=== PATIENT | female | born 1970 | race Caucasian/White ===

== ENCOUNTER 2018-01-07 21:43 | Inpatient (IN) | payer OTHER, MEDICAID, SELFPAY ==
--- NOTE | 2018-01-07 21:54 | DI.RAD.S_ITS ---
PROCEDURE: XR CHEST 2V INDICATIONS: cough, fever, SOB TECHNIQUE: 2 views of the chest were acquired. COMPARISON: None. FINDINGS: Surgical changes and devices: None. Lungs and pleura: No pleural effusions or pneumothorax. Lungs are clear. Mediastinum: Mediastinal contours are normal. Heart size is normal. Bones and chest wall: No suspicious bony abnormalities. Soft tissues appear unremarkable. IMPRESSION: No acute process. Dictated by: Ana Conner M.D. on 01/08/2018 at 9:39 Approved by: Ana Conner M.D. on 01/08/2018 at 9:39
[2018-01-07 21:56] VITALS: BP 129/74; PULSE 124; RESP 20; TEMP 37.5; O2SAT 97; BMI 35.6
[2018-01-07 22:21] LABS: Influenza A and B by PCR Rapid Negative (Negative)
[2018-01-07] MEDS: SODIUM CHLORIDE 0.9% 3,000 ML 1000 ML IV (23:05)
[2018-01-07 23:13] VITALS: BP 118/68; PULSE 112; RESP 30; O2SAT 98
[2018-01-07 23:18] LABS: Add Manual Diff / Slide Review NO; Eosinophils Percent Auto 0.9 % (2-4); Lymphocytes Percent Auto 6.1 % (25-40); Mean Corpuscular HGB Conc 33.4 % (30-36); Mean Corpuscular Hemoglobin 30.4 PG (26-34); Mean Corpuscular Volume 91.1 fL (80-100); Monocytes Percent Auto 1.6 % (3-14); Neutrophils Absolute Auto 5300 /uL (3000-5900); Neutrophils Percent Auto 91.4 % (50-75); Platelet Count 239 X10^3/uL (150-400); Red Blood Cell Count 4.61 X10^6/uL (4.0-5.2); Red Cell Distribution Width 14.5 % (11.6-14.8); White Blood Cell Count 5.8 X10^3/uL (4.5-11.0)
--- NOTE | 2018-01-07 23:22 | ED.SOB ---
HPI - SOB/Dyspnea General Chief Complaint: Shortness of Breath/Dyspnea Stated Complaint: SOB TEMPTURE HEADACHE Time Seen by Provider: 01/07/18 21:52 Source: patient and family Mode of arrival: ambulatory Limitations: no limitations History of Present Illness 47-year-old female, former smoker and current IV drug abuser presents with chief complaint of fever, shaking chills, fatigue, occasional chest pain for the past few days. She last (unsuccessfully) attempted to inject methamphetamines into her left hand about 3 weeks ago. In the aftermath she developed some redness, pain and swelling in her left hand and last Tuesday sought treatment including antibiotics in the form of Bactrim. Last evening the patient was beginning to feel ill including fever, shaking chills and some shortness of breath. She was seen and evaluated at an outside facility and had a thorough evaluation including chest x-ray and blood work, all of which was evaluated here. She had elevated inflammatory markers but a normal chest x-ray. She presents to us continued to feel unwell Related Data Home Medications Medication Instructions Recorded Confirmed Advil PM 1 caplet PO BEDTIME PRN 01/08/18 01/08/18 aspirin 325 mg PO PRN 01/08/18 cephalexin 500 mg PO Q6HR 01/08/18 01/08/18 sulfamethoxazole-trimethoprim 800 mg PO BID 01/08/18 01/08/18 Allergies Allergy/AdvReac Type Severity Reaction Status Date / Time No Known Drug Allergies Allergy Verified 01/07/18 21:56 Review of Systems Review of Systems All systems reviewed & are unremarkable except as noted in HPI and below Constitutional Reports chills, Reports fever(s), Denies lethargy and Reports weakness Eyes Denies change in vision, Denies eye discharge, Denies irritation and Denies loss of vision ENT Ears, Nose, Mouth, and Throat: Denies change in voice, Denies neck pain and Denies sore throat Cardiovascular Denies chest pain, Denies irregular heart rhythm, Denies lightheadedness, Denies palpitations, Reports dyspnea, Denies dyspnea on exertion and Denies orthopnea Respiratory Denies cough, Reports dyspnea, Denies dyspnea on exertion and Denies wheezing Gastrointestinal Gastrointestinal: Denies abdominal pain, Denies change in bowel habits, Denies diarrhea, Denies nausea and Denies vomiting Genitourinary Denies hematuria, Denies flank pain, Denies urinary incontinence and Denies urinary urgency Musculoskeletal Denies neck pain Integumentary/Breasts Denies pruritus, Reports erythema, Denies rash and Denies wounds Neurologic Denies confusion, Denies loss of vision and Reports weakness Psychiatric Denies anxiety, Denies confusion, Denies depression, Denies homicidal ideation and Denies suicidal ideation Endocrine Denies palpitations Hematologic/Lymphatic Denies easy bruising Allergic/Immunologic Denies wheezing PFSH Medical History Drug abuse and dependence (Acute) Surgical History H/O adenoidectomy (Acute) H/O tubal ligation (Acute) Hx of tonsillectomy (Acute) Social History household members: significant other Smoking Status: Current every day smoker Exam Initial Vital Signs Initial Vital Signs: Vital Signs Temperature 99.5 F 01/07/18 21:56 Pulse Rate 124 H 01/07/18 21:56 Respiratory Rate 20 01/07/18 21:56 Blood Pressure 129/74 01/07/18 21:56 Pulse Oximetry 97 01/07/18 21:56 Const General: cooperative, well developed, acute distress, disheveled and ill appearing Nutritional Appearance: well nourished Orientation: alert, awake, oriented x3 and not confused HENMT Head: normocephalic and atraumatic Ears: external ears normal and TM's normal bilaterally Nose: external nose normal and No nasal discharge Face and sinus: sinuses nontender, face symmetric, no sinus tenderness and No dry mucous membranes Mouth: oral mucosae normal and moist mucous membranes Teeth and gingiva: dentition normal Throat: tonsils normal and uvula midline Eyes General: appearance normal, both eyes and all related structures Eyelids: eyelids normal Conjunctivae: conjunctivae normal Sclera: sclerae normal Pupils: PERRL EOM: EOM intact bilaterally Neck Neck: normal visual inspection, trachea midline, No lymphadenopathy, No midline deformity and No JVD Lymphatic: No lymphedema Chest Chest: normal inspection of the chest Resp Effort & Inspection: normal respiratory effort, able to speak in complete sentences, no respiratory distress and no use of accessory muscles Auscultation: clear to auscultation bilaterally, no rales, no rhonchi and no wheezes Cardio Rate: tachycardic Rhythm: regular rhythm Heart Sounds: no click, no gallops, no murmurs and no rubs Pulses: normal peripheral pulses GI Inspection: non-distended Palpation: soft, no hepatosplenomegaly, No guarding, No pulsatile mass and No tender Auscultation: normal bowel sounds Back/Spine/Pelvis Back: No CVA tenderness Cervical Spine: cervical ROM normal and No pain with cervical ROM Thoracic/Lumbar Spine: thoracic and lumbar spine normal to inspection Skin General: no rashes or lesions noted, No jaundice and No petechiae Other: mild erythema to L hand, reported to be greatly improved over prior by patient Course Orders Ordered: ED Orders 01/07/18 21:54 XR chest 2V Stat 01/07/18 21:55 Influenza A and B by PCR Rapid Stat 01/07/18 23:00 Complete Blood Count AUTO DIFF Stat Comprehensive Metabolic Panel Stat Lactate (Lactic Acid) Stat Procalcitonin Stat 01/07/18 23:30 Blood Culture Stat 01/08/18 01:38 Consult to Chucking Machine Operator Routine Acetaminophen (Tylenol) 650 mg PO Q6HR PRN PRN Reason: As Needed for Fever/Mild Pain Sodium Chloride (Normal Saline 0.9%) 1,000 mls @ 125 mls/hr IV CONT HENRY Discontinued Medications Sodium Chloride (Normal Saline 0.9%) 3,000 mls @ 1,000 mls/hr 30 ml/kg infuse over 3 hr (3000 ml) IV CONT HENRY Last Infusion: 01/08/18 01:10 Dose: 999 mls/hr Infusion: 01/08/18 01:07 Dose: 0 mls/hr Admin: 01/07/18 23:05 Dose: 1,000 mls/hr Gentamicin Sulfate 200 mg/ (Sodium Chloride) 105 mls @ 105 mls/hr IV NOW ONE Stop: 01/07/18 23:35 Last Infusion: 01/08/18 01:08 Dose: 0 mls/hr Admin: 01/08/18 00:09 Dose: 105 mls/hr Ceftriaxone Sodium/Dextrose (Rocephin) 2 gm in 50 mls @ 100 mls/hr IV NOW ONE Stop: 01/08/18 00:03 Last Infusion: 01/08/18 00:09 Dose: 0 mls/hr Admin: 01/07/18 23:41 Dose: 100 mls/hr Lorazepam (Ativan) 0.5 mg PO NOW ONE Stop: 01/07/18 23:49 Last Admin: 01/07/18 23:52 Dose: 0.5 mg Consultations Consultation #1: Dr. Rodriguez happy to accept patient Vital Signs - 8 hr 01/07/18 21:56 01/07/18 23:13 01/08/18 00:55 Temperature 99.5 F 100.8 F H Pulse Rate 124 H 112 H 115 H Respiratory Rate 20 30 H 18 Blood Pressure 129/74 110/69 Blood Pressure [Left Arm] 118/68 Pulse Oximetry 97 98 99 MDM - SOB/Dyspnea Medical Records Attestation: I reviewed the patient's medical records. Lab Data Result diagrams: 01/07/18 23:00 01/07/18 23:00 Lab Results 01/07/18 01/07/18 01/07/18 Range/Units 21:55 23:00 23:00 WBC 5.8 (4.5-11.0) X10^3/uL RBC 4.61 (4.0-5.2) X10^6/uL Hgb 14.0 (12.0-16.0) g/dL Hct 42.0 (36-46) % MCV 91.1 (80-100) fL MCH 30.4 (26-34) PG MCHC 33.4 (30-36) % RDW 14.5 (11.6-14.8) % Plt Count 239 (150-400) X10^3/uL Neut % (Auto) 91.4 H (50-75) % Lymph % (Auto) 6.1 L (25-40) % [place] % (Auto) 1.6 L (3-14) % Eos % (Auto) 0.9 L (2-4) % Baso % (Auto) 0.0 (0-2) % Neut # (Auto) 5300 (1510-4092) /uL Sodium (137-145) mmol/L Potassium (3.4-5.1) mmol/L Chloride (98-107) mmol/L Carbon Dioxide (22-32) mmol/L BUN (7-17) mg/dL Creatinine (0.52-1.04) mg/dL Estimated GFR (>60) mL/min BUN/Creatinine Ratio (6-22) Glucose (70-100) mg/dL Lactate (0.7-2.1) mmol/L Calcium (8.4-10.2) mg/dL Total Bilirubin (0.2-1.3) mg/dL AST (14-36) IU/L ALT (9-52) IU/L Alkaline Phosphatase (38-126) U/L Total Protein (6.3-8.2) g/dL Albumin (3.5-5.0) g/dL Globulin (1.7-4.1) g/dL Albumin/Globulin Ratio (1.0-2.8) Procalcitonin 0.22 (<0.5) ng/mL Influenza A & B (PCR) Negative (Negative) 01/07/18 01/07/18 Range/Units 23:00 23:00 WBC (4.5-11.0) X10^3/uL RBC (4.0-5.2) X10^6/uL Hgb (12.0-16.0) g/dL Hct (36-46) % MCV (80-100) fL MCH (26-34) PG MCHC (30-36) % RDW (11.6-14.8) % Plt Count (150-400) X10^3/uL Neut % (Auto) (50-75) % Lymph % (Auto) (25-40) % [place] % (Auto) (3-14) % Eos % (Auto) (2-4) % Baso % (Auto) (0-2) % Neut # (Auto) (4626-0155) /uL Sodium 143 (137-145) mmol/L Potassium 4.2 (3.4-5.1) mmol/L Chloride 104 (98-107) mmol/L Carbon Dioxide 25 (22-32) mmol/L BUN 17 (7-17) mg/dL Creatinine 1.30 H (0.52-1.04) mg/dL Estimated GFR 44.1 L (>60) mL/min BUN/Creatinine Ratio 13.1 (6-22) Glucose 99 (70-100) mg/dL Lactate 0.8 (0.7-2.1) mmol/L Calcium 9.1 (8.4-10.2) mg/dL Total Bilirubin 0.4 (0.2-1.3) mg/dL AST 25 (14-36) IU/L ALT 30 (9-52) IU/L Alkaline Phosphatase 95 (38-126) U/L Total Protein 8.2 (6.3-8.2) g/dL Albumin 4.5 (3.5-5.0) g/dL Globulin 3.7 (1.7-4.1) g/dL Albumin/Globulin Ratio 1.2 (1.0-2.8) Procalcitonin (<0.5) ng/mL Influenza A & B (PCR) (Negative) Urine Dip Bedside Urine Glucose Negative Bedside Urine Bilirubin - Negative Bedside Urine Ketone - Negative Urine Specific [place] 1.020 Bedside Urine Occult Blood - Negative Bedside Urine pH 7.0 Bedside Urine Protein - Negative Bedside Urine Urobilinogen - Negative Bedside Urine Nitrite - Negative Bedside Urine Leukocytes - Negative Esterase ECG Data Attestation: I personally reviewed and interpreted this ECG as follows: Prior ECG tracings: not available for review Interpretation: EKG is normal sinus rhythm rate [ 124] and free of any signs of ischemia or ectopy. No ST segmental elevation or depression. No T wave inversions MDM Narrative Medical decision making narrative: 47-year-old female, IV drug abuser presents with fever, shaking chills, shortness of breath and occasional chest pain. Her left hand, cellulitis, is greatly improved per patient. She had a chest x-ray last night which was normal. Given her history of IV drug abuse she will require admission IV antibiotics until cultures clear, with likely echocardiogram for the possibility of endocarditis Discharge Plan Departure Patient Disposition: Admitted As Inpatient Clinical Impression: Bacteremia Discharge Date/Time: 01/08/18 01:00 Interventions: ED Discharge Assessment Last Done: 01/08/18 01:10 Admit Date/Time: 01/08/18 00:14 Admit Provider: Melly Rodriguez
[2018-01-07 23:27] LABS: Alanine Aminotransferase 30 IU/L (9-52); Albumin 4.5 g/dL (3.5-5.0); Albumin Globulin Ratio 1.2 (1.0-2.8); Alkaline Phosphatase 95 U/L (38-126); Aspartate Aminotransferase 25 IU/L (14-36); BUN Creatinine Ratio 13.1 (6-22); Bilirubin Total 0.4 mg/dL (0.2-1.3); Blood Urea Nitrogen 17 mg/dL (7-17); Calcium 9.1 mg/dL (8.4-10.2); Carbon Dioxide 25 mmol/L (22-32); Chloride 104 mmol/L (98-107); Estimated Glomerular Filt Rate 44.1 mL/min (>60); Globulin 3.7 g/dL (1.7-4.1); Glucose 99 mg/dL (70-100); HEMOLYSIS < 15 (0-50); Lactate (Lactic Acid) 0.8 mmol/L (0.7-2.1); Potassium 4.2 mmol/L (3.4-5.1); Sodium 143 mmol/L (137-145); Total Protein 8.2 g/dL (6.3-8.2)
[2018-01-07 23:41] LABS: Procalcitonin 0.22 ng/mL (<0.5)
[2018-01-07] MEDS: CEFTRIAXONE 2 GM/50 ML FROZ.PIGGY IV (23:41)
[2018-01-07] MEDS: LORazepam 0.5 MG TABLET PO (23:52)
[2018-01-08] VITALS (9 sets, daily range): BP systolic 103–127; BP diastolic 55–69; PULSE 76–115; RESP 16–24; TEMP 36.7–38.2; O2SAT 97–100; BMI 35.6
[2018-01-08] MEDS: GENTAMICIN 200 MG in SODIUM CHLORIDE 0.9% 100 ML 105 ML IV (00:09)
--- NOTE | 2018-01-08 00:13 | PC.NURSE ---
#2 of 3 liters hung. Lung mendez clear
--- NOTE | 2018-01-08 01:09 | PC.NURSE ---
gentamyacin and NS to continue on acute care floor.
[2018-01-08] MEDS: ACETAMINOPHEN 325 MG TABLET 650 MG PO ×3 (02:14→19:24)
[2018-01-08] MEDS: SODIUM CHLORIDE 0.9% 1,000 ML 125 ML IV ×3 (03:06→19:50)
--- NOTE | 2018-01-08 05:37 | PC.ADMIT ---
[address] Admission Note: At appr 0100 pt arrived to room 227 from the ER via a wheelchair, pt able to transfer herself indep to the bed. Pt is A/O x3 and shares openinly that she had been using IV drugs up until appr 3 weeks ago, pt stopped in an effort to get her life back in order and get her kids back with her. Pt also shares that she is trying to get herself healthy, she is concerned that her drug use may have caused damage to her heart, she has had chest pain and shortness of breath prior to admission and in the ER, denies both at this time. Pt receiving some outpt dependency and mental health counseling in [place] where she lives with her significant other and she is in town visiting family. Pt is calm and cooperative. Temp of 100.8 with a headache, medicated with Tylenol. Finished IV Bolus that was started in the ER and IVF infusing at ordered rate. Light erythema and swelling to left hand/thumb, denies pain to site. Tele in place. Bed alarm on for safety. Pt oriented to room and call light and questions answered. The patient,ADA PATTERSON,47 y/o, was given written information regarding hospital policies, unit procedures and contact persons. Patient's smoking status: Current every day smoker. Vital Signs - 8 hr 01/07/18 21:56 01/07/18 23:13 01/08/18 00:55 Temperature 99.5 F 100.8 F H Pulse Rate 124 H 112 H 115 H Respiratory Rate 20 30 H 18 Blood Pressure 129/74 110/69 Blood Pressure [Left Arm] 118/68 Pulse Oximetry 97 98 99 01/08/18 02:14 01/08/18 03:00 01/08/18 04:53 Temperature 100.8 F H 98.3 F 98.2 F Pulse Rate 99 H Respiratory Rate 20 Blood Pressure 103/55 L Blood Pressure [Left Arm] Pulse Oximetry 97
--- NOTE | 2018-01-08 13:39 | PM.HP.1 ---
History of Present Illness Date Patient Seen: 01/08/18 Chief complaint: SOB TEMPTURE HEADACHE Narrative: This is a 47-year-old female with a long history of methamphetamine abuse who presents with constitutional symptoms suggesting either endocarditis/bacteremia or some other viral condition. She was just seen at the [facility] emergency department 1 day ago for an infection of the left thumb that was caused by an injection of methamphetamine.. She was started on Keflex and Bactrim. That swelling has gone down but the systemic symptoms of ?crummy [place]?, fever, chills, fast heart beat and chest heaviness developed subsequently. She lives in [facility] and is undergoing methamphetamine outpatient treatment at the [facility] in an effort to get custody of her children back. She is a former dental ex assistant/program director. Brad, her significant other is also in treatment and is with her in the room. Their children are 10 and 15. One of them lives with a grandparent and the other 1 lives in state housing. At the end of the visit she covers her mouth partly and whispers to me that her partner has psychosis. His explanations for how they use drugs are quite circuitous and confusing. Patient History Medical History delivery delivered (Acute) Drug abuse and dependence (Acute) Methamphetamine abuse (Acute) Nicotine addiction (Acute) Surgical History H/O dilation and curettage (Acute) H/O tubal ligation (Chronic) H/O adenoidectomy (Inactive) Hx of tonsillectomy (Inactive) Family & Social History Family History: Reviewed 01/08/18 by Melly Rodriguez MD Social History: household members significant other Prior Living Arrangements Apartment/Condo Safety & Behavioral: Feels Safe in Current Yes Environment Been Physically Hurt or No Threatened By a Person Suicidal Ideation Description None Suicide Plan Description No Plan Tobacco & Substance use: Tobacco type cigarettes Smoking Status Current every day smoker alcohol intake frequency 0-2 drinks per day Substance Use Type former substance user,methamphetamine Meds Home Medications Medication Instructions Recorded Confirmed Type Advil PM 1 caplet PO BEDTIME PRN 01/08/18 01/08/18 History aspirin 325 mg PO Q4H PRN 01/08/18 01/08/18 History cephalexin 500 mg PO Q6HR 01/08/18 01/08/18 History sulfamethoxazole-trimethoprim 800 mg PO BID 01/08/18 01/08/18 History Allergies Allergy/AdvReac Type Severity Reaction Status Date / Time No Known Drug Allergies Allergy Verified 01/07/18 21:56 Review of Systems Review of Systems Positive for chills and fevers along with left hand infection. Negative for chest pain, nausea, vomiting, coughing, abdominal pain, diarrhea, dysuria, hematuria, rash, joint pain other than the left hand, seizures, headaches, trouble talking or walking. Exam Vital Signs (past 8 hours): - 01/08/18 07:55 Temperature 98.8 F Pulse Rate 90 Respiratory Rate 20 Blood Pressure 124/69 Pulse Oximetry 99 Oxygen Delivery Method Room Air Narrative Exam Narrative: Alert and oriented x3. No apparent distress. Pupils are equally round and reactive to light and accommodation. Sclerae are pink and nonicteric. Extraocular muscles are intact. Throat looks normal No lymph nodes are felt head, neck, supraclavicular area. There is no thyromegaly. JVD is less than 6 cm. No carotid bruits are heard. Heart is regular rate and rhythm without murmur. Lungs clear to auscultation bilaterally. Abdomen is soft, bowel sounds positive, nontender, no organomegaly. Extremities have no ankle edema. She does have a small dorsal left thumb swelling over the 1st MCP joint. It is a firm lump and is not tender. There is no redness or fluctuance. Neuro exam. Reflexes are normal. Cranial nerves 2-12 tested intact. Motor function is 5/5 throughout. Hand function is normal throughout. DTRs are normal Skin has no rash or needle chua that I can readily see. Objective Labs Result Diagrams: 01/07/18 23:00 01/07/18 23:00 Labs: Laboratory Results - last 24 hr 01/07/18 01/07/18 01/07/18 21:55 23:00 23:00 WBC 5.8 RBC 4.61 Hgb 14.0 Hct 42.0 MCV 91.1 MCH 30.4 MCHC 33.4 RDW 14.5 Plt Count 239 Neut % (Auto) 91.4 H Lymph % (Auto) 6.1 L [place] % (Auto) 1.6 L Eos % (Auto) 0.9 L Baso % (Auto) 0.0 Neut # (Auto) 5300 Sodium Potassium Chloride Carbon Dioxide BUN Creatinine Estimated GFR BUN/Creatinine Ratio Glucose Lactate Calcium Total Bilirubin AST ALT Alkaline Phosphatase Total Protein Albumin Globulin Albumin/Globulin Ratio Procalcitonin 0.22 Influenza A & B (PCR) Negative 01/07/18 01/07/18 23:00 23:00 WBC RBC Hgb Hct MCV MCH MCHC RDW Plt Count Neut % (Auto) Lymph % (Auto) [place] % (Auto) Eos % (Auto) Baso % (Auto) Neut # (Auto) Sodium 143 Potassium 4.2 Chloride 104 Carbon Dioxide 25 BUN 17 Creatinine 1.30 H Estimated GFR 44.1 L BUN/Creatinine Ratio 13.1 Glucose 99 Lactate 0.8 Calcium 9.1 Total Bilirubin 0.4 AST 25 ALT 30 Alkaline Phosphatase 95 Total Protein 8.2 Albumin 4.5 Globulin 3.7 Albumin/Globulin Ratio 1.2 Procalcitonin Influenza A & B (PCR) Assessment & Plan (1) H/O adenoidectomy: Current visit: Yes Status: Inactive (2) Hx of tonsillectomy: Current visit: Yes Status: Inactive (3) H/O tubal ligation: Current visit: Yes Status: Chronic (4) Drug abuse and dependence: Problem details: She is actively seeking treatment in the [facility] for her methamphetamine use in order to regain custody of her children. She denies any prior history of heroin. Current visit: Yes Status: Acute (5) Methamphetamine abuse: Problem details: She has used methamphetamines for many years, along with her significant other. They apparently usually smoke it but on this recent episode she was trying to inject. Current visit: Yes Status: Acute (6) Bacteremia: Problem details: Her symptoms are very consistent with a bacteremic process. Blood cultures are pending. An echocardiogram will be done. She could quite conceivably have endocarditis based on her symptoms and recent history. She will be covered with vancomycin and Rocephin to cover the most usual skin infections of staph and strep. Current visit: Yes Status: Acute Quality VTE Deep Vein Thrombosis/Pulmonary Embolism Present on Admission: No
--- NOTE | 2018-01-08 13:40 | DI.ECHO.S_ITS ---
[facility] +---------+ Hospital +---------+ : : [address] : : : : [id number] : : : : Phone: [phone] Echocardiogram Report + + :Name: ADA PATTERSON Study Date: 01/09/2018 Height: 66 in : :[facility] Exam Location: IS Weight: 220 lb : : Gender: Female BSA: 2.1 m2 : :: 1970 Age: 47 yrs BP: 106/71 mmHg: :Reason For Study: ENDOCARDITIS : :Ordering Physician: Prince : :Hospitalist Performed By: Ewelina Kang : :Referring: PETER ZEPEDA E : + + Interpretation Summary The ejection fraction is estimated to be 55-60%. There is no significant valvular heart disease. Procedure: A two-dimensional transthoracic echocardiogram with color flow and Doppler was performed. The study quality was technically adequate. There is no prior echocardiogram noted for this patient. The patient was in normal sinus rhythm during the exam. Left Ventricle: The left ventricle is normal in size, wall thickness, and systolic function without any focal wall motion abnormalities. The ejection fraction is estimated to be 55-60%. Diastolic parameters suggest a relaxation abnormality of the left ventricle, consistent with probable normal filling pressures. Right Ventricle: The right ventricle is normal in size and function. Atria: The left atrial size is normal. Right atrial size is normal. There is no Doppler evidence for an interatrial shunt. Mitral Valve: The mitral valve is normal. There is no obvious vegetation seen on the mitral valve. There is trace mitral regurgitation. Aortic Valve: The aortic valve is normal in structure and function. There is no aortic valvular vegetation. No aortic regurgitation is present. Tricuspid Valve: The tricuspid valve is normal. There is no obvious tricuspid valve vegetation. There is a trace or physiologic amount of tricuspid regurgitation. Pulmonary artery pressures cannot be estimated because of the lack of a measurable TR jet velocity. Pulmonic Valve: The pulmonic valve leaflets are thin and pliable; valve motion is normal. There is no obvious vegetation on the pulmonic valve. There is a trace or physiologic amount of pulmonic regurgitation. Great Vessels: The aortic root is normal size. The ascending aorta is normal in size. The aortic arch is normal in size. The pulmonary is not well visualized. The IVC is dilated (diameter is greater than 2.1 cm) yet it collapses greater than 50% with a sniff. This suggests a right atrial pressure of 8 mm Hg. Pericardium/ Pleura There is no pericardial effusion. There is no pleural effusion. MMode/2D Measurements & Calculations LVIDd: 4.6 cm LVOT diam: 2.0 cm LVIDs: 3.4 cm Ao root diam: 2.9 cm FS: 26.1 % asc Aorta Diam: 2.7 cm EPSS: 0.52 cm Ao Arch Diam (Prox Trans): 2.3 cm IVSd: 0.86 cm LVPWd: 0.87 cm LV cardona. diameter/BSA (cm/m^2): 2.2 LV sys. diameter/BSA (cm/m^2): 1.6 LA A2 area: 17.8 cm2 RA long axis: 4.7 cm LA A4 area: 20.6 cm2 RA area: 14.9 cm2 LA length (vol): 5.0 cm RA vol: 40.4 ml LA vol: 61.9 ml RA : 19.4 ml/m2 LA vol index: 29.7 ml/m2 IVC diam: 2.4 cm RVD1 (basal): 3.8 cm TAPSE: 2.5 cm Doppler Measurements & Calculations Ao V2 max: 114.3 cm/sec LVOT Max Bert: 79.0 cm/sec Ao V2 mean: 81.1 cm/sec LV V1 max P.5 mmHg Ao max P.2 mmHg LV V1 VTI: 13.2 cm Ao mean P.9 mmHg LUI(I,D): 1.9 cm2 Ao V2 VTI: 22.0 cm LUI(V,D): 2.2 cm2 sev ratio: 0.60 LUI indexed to BSA (cm^2/m^2): 0.92 MV E max bert: 77.1 cm/sec PA V2 max: 71.5 cm/sec MV A max bert: 56.8 cm/sec PA V2 mean: 49.9 cm/sec MV E/A: 1.4 PA mean P.1 mmHg Med Peak E' Bert: 10.5 cm/sec PA pr(Accel): 44.1 mmHg E/E' med: 7.3 Lat Peak E' Bert: 9.6 cm/sec E/E' lat: 8.1 E/e' average: 7.7 MV dec time: 0.20 sec Reading Physician:01:12 PM
--- NOTE | 2018-01-08 14:31 | PC.NURSE ---
1430 Pt cont to rest in bed, IVF infusing. IV antibx to start this PM per APR. Urine specimen sent at 1340 today. Pt med with Tylenol x 1 this AM for H/A. Left thumb w/o redness or swelling.
[2018-01-08 14:44] LABS: Erythrocyte Sedimentation Rate 31 MM/HR (0-20)
[2018-01-08 15:03] LABS: Urine Amphetamines Negative (Negative); Urine Barbiturates Negative (Negative); Urine Benzodiazepines Negative (Negative); Urine Cocaine Negative (Negative); Urine MDMA Negative (Negative); Urine Methadone Negative (Negative); Urine Methamphetamines Negative (Negative); Urine Morphine/Opi cutoff 2000 Negative (Negative); Urine Oxycodone Negative (Negative); Urine Phencyclidine Negative (Negative); Urine Tetrahydrocannabinol Negative (Negative); Urine Tricyclic Antidepressant Negative (Negative)
--- NOTE | 2018-01-08 15:58 | PC.NURSE ---
1600-Pt sitting at woindow bench reading own book, back to bed to rest and watch TV. A/O x3, 99%RA, LS clear, denies SOB. VSS, BT+, denies nausea. URA NS @125 infusing per MAR.. ABO @ 2230. Telemetry in place with NSR. Lt hand/superior thumb, slight pink w/o swelling, cool to touch, w/o pain. SBA to BRP to void clear yellow urine. Provided cran tracie, call light in reach, uses appropriately.
[2018-01-08] MEDS: diphenhydrAMINE 25 MG TABLET PO (19:24)
[2018-01-08] MEDS: CEFTRIAXONE 1 GM/50 ML FROZ.PIGGY IV (22:39)
[2018-01-09] MEDS: SODIUM CHLORIDE 0.9% 1,000 ML 125 ML IV ×2 (04:23→13:54)
[2018-01-09 04:32] VITALS: BP 100/60; PULSE 74; RESP 17; TEMP 36.6; O2SAT 98
--- NOTE | 2018-01-09 06:05 | PC.NURSE ---
Pt is A and O x 4, VSS. Denies pain, is eating and drinking and was able to sleep this shift. NSR with no tachycardia. LS clear, + BTs. Pt states her cellulites of the L hand feels like it is getting better.
[2018-01-09 07:46] VITALS: BP 106/71; PULSE 81; RESP 20; TEMP 36.7; O2SAT 99
[2018-01-09] MEDS: ACETAMINOPHEN 325 MG TABLET 650 MG PO (09:35)
[2018-01-09 11:15] VITALS: BP 118/73; PULSE 78; RESP 16; TEMP 36.6; O2SAT 100
--- NOTE | 2018-01-09 11:24 | CM.DANOTE ---
Discharge Planning/Care Management CM Discharge Assessment Start: 01/09/18 11:05 Freq: Status: Active Protocol: Document 01/09/18 11:05 (Rec: 01/09/18 11:20 [id number]) Discharge Planning Assessment Assigned Sql Developer HUONG Olivares Advance Directives? No History Provided By Patient Medical Record Has Patient been admitted in last 30 No days? Prior Living Arrangements Apartment/Condo Household Members significant other children Independent with ADL's Yes Is patient alert and oriented? Yes Caregiver for Another Yes: 2 children age 10/15. Active CPS case. Not in patient's care at this time. Community Services used prior to Social Work admission: Comment Receiving OP MH and OP CD treatment via [facility] via [facility] for [employer] in [place]. Patient reports medication management, counseling, random UAs and treatment as needed. Comment Patient's goal is home but possible SNF need should patient require IV abx at discharge. Patient has history of IV drug use and ineligible for Home Infusion. Barriers to Discharge Yes Comment History of IV drug use, Auth for SNF from [place] if needed. Discharge Plan Home Transportation Arrangement Should patient discharge home, patient's mom or MIL would provide transportation home. Additional Comment None at this time, but possible SNF referral is patient is unable to transition to PO abx. Comment Patient resides with LT partner/Brad Guerrero and provided SW with permission to speak to him as needed. Patient does not anticipate any discharge needs but is agreeable to SNF should she need IV abx. Patient will resume OP MH/CD as required by DCYF. Patient gave preference to local SNFs, [facility] and [facility] to remain close to son that resides in [facility]. Whiteboard Updated in Patient Room with Yes name and ext. # of Sql Developer Review Status In Process Please Provide Date Initial DC 01/09/18 Assessment Was Performed Next Review Type Continued Stay Review
--- NOTE | 2018-01-09 11:39 | PM.PN.1 ---
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 PATIENT IS ALERT ORIENTED X3. VITAL SIGNS STABLE HEAD ATRAUMATIC NORMOCEPHALIC NECK : SUPPLE WITHOUT ADENOPATHY EYE: EOMI, PERRLA, NORMAL CONJUNCTIVA CHEST: REGULAR RATE.. NO RUBS. PMI IS NON DISPLACED. NO MURMURS PULMONARY: DECREASED BS OVER THE BASES. MILD BIBASILAR CRACKLES NOTED; NO INCREASED DULLNESS TO PERCUSSION EXTREMITIES: 1+ EDEMA. NONPITTING. NO CYANOSIS CLUBBING NOTED. NEURO: CRANIAL NERVES 2-12 GROSSLY INTACT. NO FOCAL NEUROLOGICAL DEFICIT NOTED. MSK: NORMAL RANGE OF MOTION FOR AGE. NO JOINT EFFUSION. SKIN: NORMAL FOR ETHNICITY; NO ECCHYMOSIS. NO LESION. GOOD TURGOR.; NORASHES : NORMAL EXTERNAL GENITALIA. PSYCH : APPROPRIATE MOOD AND AFFECT. ALERT AWAKE ORIENTED X3 Objective Labs Result Diagrams: 01/07/18 23:00 01/07/18 23:00 Labs: Laboratory Results - last 24 hr 01/08/18 01/08/18 14:00 14:14 ESR 31 H Urine Opiates Screen Negative Ur Oxycodone Screen Negative Urine Methadone Screen Negative Ur Barbiturates Screen Negative U Tricyclic Antidepress Negative Ur Phencyclidine Scrn Negative Ur Amphetamines Screen Negative U Methamphetamines Scrn Negative Ur MDMA Scrn (Ecstasy) Negative U Benzodiazepines Scrn Negative Urine Cocaine Screen Negative U Marijuana (THC) Screen Negative Assessment & Plan Plan: Assessment/Plan Narrative: ASSESSMENT AND PLAN ILLICIT DRUG USER; METH PER PATIENT; COUNSELING GIVEN; OUTPATIENT MANAGEMENT CELLULITIS TO LEFT HAND; RESOLVED; DC ALL IV ABX; PO DOXY FOR 3 DAYS R/O ENDOCARDITIS; UNLIKELY; ECHO ORDERED HOWEVER; AWAITING READ PER CARDIO; OBESITY; LIFESTYLE CHANGES RECOMMENDED; OUTPATIENT MANAGEMENT ACUTE RENAL FAILURE; LIKELY PRERENAL AZOTHEMIA; GET LABS IN AM; AVOID NEPHROTOXINS MEDICAL NON COMPLIANCE; EXTENSIVE COUNSELING GIVEN TOBACCO ABUSE/NICOTINE ADDICTION; COUNSELING AND PATCH INDICATED DC IN NEXT 24 HRS DEPENDING ON TEST RESULTS AND CLINICAL COURSE Quality VTE Deep Vein Thrombosis/Pulmonary Embolism Present on Admission: No
[2018-01-09] MEDS: ASPIRIN 325 MG TABLET PO (14:20)
--- NOTE | 2018-01-09 15:46 | PC.ADMIT ---
patient settled into rm 225. daughter and ISSA at bedside. patient wakeful during transf by slider board. grimaces with any mvmt vss, ra sat 92-98%. family states patient is normally very stoic, so if he seems to be in pain it is likely a high level on the pain scale. resting at change of shift. bed alarm on. report given to theresa you rn. delegated admission assessment to float nurse. [address] Admission Note: The patient,Clementina Cuevas,47 y/o, was given written information regarding hospital policies, unit procedures and contact persons. Patient's smoking status: Current every day smoker. Vital Signs - 8 hr 01/09/18 11:15 Temperature 97.9 F Pulse Rate 78 Respiratory Rate 16 Blood Pressure 118/73 Pulse Oximetry 100
[2018-01-09 16:00] VITALS: BP 117/68; PULSE 78; RESP 18; TEMP 36.6; O2SAT 100
[2018-01-09 18:28] LABS: Magnesium 2.2 mg/dL (1.6-2.3)
[2018-01-09 19:30] VITALS: BP 112/65; PULSE 77; RESP 16; TEMP 36.7; O2SAT 98
[2018-01-09] MEDS: DOXYCYCLINE HYCLATE 100 MG TABLET PO (20:59)
[2018-01-09] MEDS: diphenhydrAMINE 25 MG TABLET PO (21:00)
[2018-01-10] VITALS: BP 114/72; PULSE 78; RESP 18; TEMP 36.5; O2SAT 98
[2018-01-10] MEDS: SODIUM CHLORIDE 0.9% 1,000 ML 125 ML IV (01:00)
--- NOTE | 2018-01-10 01:17 | PC.NURSE ---
Patient is alert and oriented; speech slightly mumbles and can be difficult to understand at times. Breath sounds CTA with RA sat of 98%. HRR; telemetry reading was SR. Denies nausea. BT present and abdomen is soft. Denies dysuria or urgency but is voiding more frequently than normal related to IVF infusing and increased po intake. Independent with mobility. Flat, pink, lacy appearing rash on back; denies itching. Dime size lump on right hand near base of thumb; denies pain/discomfort. Denies any pain. Fall risk moderate but has been getting up independently and is steady on feet; reminded to call for assist if experiencing any dizziness when up.
[2018-01-10 03:24] VITALS: BP 114/68; PULSE 72; RESP 17; TEMP 36.7; O2SAT 98
[2018-01-10 05:16] LABS: Alanine Aminotransferase 30 IU/L (9-52); Albumin 3.3 g/dL (3.5-5.0); Albumin Globulin Ratio 1.2 (1.0-2.8); Alkaline Phosphatase 62 U/L (38-126); Aspartate Aminotransferase 19 IU/L (14-36); BUN Creatinine Ratio 21.7 (6-22); Bilirubin Total 0.1 mg/dL (0.2-1.3); Blood Urea Nitrogen 13 mg/dL (7-17); Calcium 8.3 mg/dL (8.4-10.2); Carbon Dioxide 23 mmol/L (22-32); Chloride 107 mmol/L (98-107); Estimated Glomerular Filt Rate > 60.0 mL/min (>60); Globulin 2.8 g/dL (1.7-4.1); Glucose 136 mg/dL (70-100); HEMOLYSIS < 15 (0-50); Potassium 3.9 mmol/L (3.4-5.1); Sodium 141 mmol/L (137-145); Total Protein 6.1 g/dL (6.3-8.2)
[2018-01-10 05:22] LABS: Add Manual Diff / Slide Review NO; Basophils Percent Auto 0.2 % (0-2); Eosinophils Percent Auto 4.3 % (2-4); Hematocrit 34.7 % (36-46); Hemoglobin 11.4 g/dL (12.0-16.0); Lymphocytes Percent Auto 42.5 % (25-40); Mean Corpuscular HGB Conc 32.8 % (30-36); Mean Corpuscular Volume 91.4 fL (80-100); Monocytes Percent Auto 6.6 % (3-14); Neutrophils Absolute Auto 3100 /uL (3000-5900); Neutrophils Percent Auto 46.4 % (50-75); Platelet Count 225 X10^3/uL (150-400); Red Cell Distribution Width 14.4 % (11.6-14.8); White Blood Cell Count 6.7 X10^3/uL (4.5-11.0)
[2018-01-10 07:05] VITALS: BP 118/75; PULSE 80; RESP 16; TEMP 36.7
[2018-01-10] MEDS: ACETAMINOPHEN 325 MG TABLET 650 MG PO (08:57)
[2018-01-10] MEDS: DOXYCYCLINE HYCLATE 100 MG TABLET PO (08:57)
--- NOTE | 2018-01-10 09:52 | PM.DS.1 ---
History of Present Illness Date Patient Seen: 01/10/18 Time Patient Seen: 09:58 Chief complaint: SOB TEMPTURE HEADACHE Narrative: History of Present Illness Date Patient Seen: 01/08/18 Chief complaint: SOB TEMPTURE HEADACHE Narrative: This is a 47-year-old female with a long history of methamphetamine abuse who presents with constitutional symptoms suggesting either endocarditis/bacteremia or some other viral condition. She was just seen at the [facility] emergency department 1 day ago for an infection of the left thumb that was caused by an injection of methamphetamine.. She was started on Keflex and Bactrim. That swelling has gone down but the systemic symptoms of ?crummy [place]?, fever, chills, fast heart beat and chest heaviness developed subsequently. She lives in [facility] and is undergoing methamphetamine outpatient treatment at the [facility] in an effort to get custody of her children back. She is a former dental administration assistant. Brad, her significant other is also in treatment and is with her in the room. Their children are 10 and 15. One of them lives with a grandparent and the other 1 lives in state housing. At the end of the visit she covers her mouth partly and whispers to me that her partner has psychosis. His explanations for how they use drugs are quite circuitous and confusing. Discharge Providers Date of admission: 01/08/18 00:14 Consults: 01/08/18 01:38 Consult to Shot Hole Driller Routine Comment: Discharge provider: Eddie Nolan DO Discharge Date: 01/10/18 Summary Discharge Diagnosis: CELLULITIS OF THE LEFT HAND ; RESOLVED ILLICIT DRUB ABUSER METHAMPHETAMINE DEPENDENCY; EXTENSIVE COUNSELING GIVEN. PATIENT IS TO SEEK HELP IN THE COMMUNITY FOR HELP WITH HER DISEASE NICOTINE ADDICTION; EXTENSIVE COUNSELING GIVEN OBESITY; OUTPATIENT MANAGEMENT. LIFESTYLE CHANGES RECOMMENDATION MEDICAL NONCOMPLIANCE. EXTENSIVE COUNSELING GIVEN WELL ENDOCARDITIS RULED OUT BACTEREMIA RULED OUT Hospital Course: - PATIENT ADMITTED TO THE HOSPITAL WITH SUSPICION OF BACTEREMIA. - SHE HAS A HISTORY OF IV DRUG USE. SHE DID ADMIT TO THAT - SHE STATED THAT SHE TRIED TO INJECT HER LEFT HAND WITH METHAMPHETAMINE AND DEVELOPED SOME CELLULITIS AT THE SITE OF INJECTION - ANY CASE SHE HAD BLOOD CULTURES IN THE HOSPITAL WHICH WAS NEGATIVE. SHE ALSO HAD ECHOCARDIOGRAM WHICH DID NOT SHOW ANY VALVULAR VEGETATIONS - SHE APPEARS SIGNIFICANTLY IMPROVED AT THIS POINT. SHE IS CLINICALLY STABLE. - SHE WILL BE DISCHARGED TO [facility]. EXTENSIVE COUNSELING WAS GIVEN REGARDING CESSATION OF ILLICIT DRUG USE. - PATIENT WILL NEED TO SEEK FOR HELP WITH THE COMMUNITY TO HELP FOR DRUG ABUSE - IF SHE DOES NOT DO SO SHE UNDERSTAND THAT HER PROGNOSIS IS VERY POOR AND A LONG RUN Status at Discharge Cognitive/behavioral status at discharge: STABLE TO HOME Functional status at discharge: independent ambulation Overall status at discharge: patient is back to baseline Time Spent with Patient Greater than 30 minutes Exam Vital Signs (past 8 hours): - 01/10/18 03:24 01/10/18 07:05 Temperature 98.1 F 98.1 F Pulse Rate 72 80 Respiratory Rate 17 16 Blood Pressure 114/68 118/75 Pulse Oximetry 98 Oxygen Delivery Method Room Air Oxygen Flow Rate 0 Narrative Exam Narrative: Exam Narrative: NO ACUTE DISTRESS. PATIENT IS ALERT ORIENTED X3. VITAL SIGNS STABLE HEAD ATRAUMATIC NORMOCEPHALIC NECK : SUPPLE WITHOUT ADENOPATHY EYE: EOMI, PERRLA, NORMAL CONJUNCTIVA CHEST: REGULAR RATE.. NO RUBS. PMI IS NON DISPLACED. NO MURMURS PULMONARY: DECREASED BS OVER THE BASES. MILD BIBASILAR CRACKLES NOTED; NO INCREASED DULLNESS TO PERCUSSION EXTREMITIES: 1+ EDEMA. NONPITTING. NO CYANOSIS CLUBBING NOTED. NEURO: CRANIAL NERVES 2-12 GROSSLY INTACT. NO FOCAL NEUROLOGICAL DEFICIT NOTED. MSK: NORMAL RANGE OF MOTION FOR AGE. NO JOINT EFFUSION. SKIN: NORMAL FOR ETHNICITY; NO ECCHYMOSIS. NO LESION. GOOD TURGOR.; NORASHES : NORMAL EXTERNAL GENITALIA. PSYCH : APPROPRIATE MOOD AND AFFECT. ALERT AWAKE ORIENTED X3 Objective Labs Result Diagrams: 01/10/18 04:50 01/10/18 04:50 Labs: Laboratory Results - last 24 hr 01/07/18 01/10/18 01/10/18 23:00 04:50 04:50 WBC 6.7 RBC 3.80 L Hgb 11.4 L Hct 34.7 L MCV 91.4 MCH 30.0 MCHC 32.8 RDW 14.4 Plt Count 225 Neut % (Auto) 46.4 L Lymph % (Auto) 42.5 H [place] % (Auto) 6.6 Eos % (Auto) 4.3 H Baso % (Auto) 0.2 Neut # (Auto) 3100 Sodium 143 141 Potassium 4.2 3.9 Chloride 104 107 Carbon Dioxide 25 23 BUN 17 13 Creatinine 1.30 H 0.60 Estimated GFR 44.1 L > 60.0 BUN/Creatinine Ratio 13.1 21.7 Glucose 99 136 H Calcium 9.1 8.3 L Magnesium 2.2 Total Bilirubin 0.4 0.1 L AST 25 19 ALT 30 30 Alkaline Phosphatase 95 62 Total Protein 8.2 6.1 L Albumin 4.5 3.3 L Globulin 3.7 2.8 Albumin/Globulin Ratio 1.2 1.2 Discharge Plan Discharge Plan Patient Disposition: Home Discharge comment: DC TO HOME ACT [facility] CARDIAC DIET F/U WITH PCP NEEDED REFRAIN FROM TOBACCO AND ILLICIT DRUGS Discharge Med Rec/Prescriptions Prescriptions: New doxycycline hyclate 100 mg Tablet 100 mg PO BID 7 Days Qty: 14 RF: 0 ciprofloxacin HCl 500 mg tablet 500 mg PO BID Qty: 14 RF: 0 Continue Advil PM 1 caplet PO BEDTIME PRN (Reason: Sleep) RF: 0 aspirin capsule 325 mg PO Q4H PRN (Reason: Pain, Mild) RF: 0 Discontinued cephalexin 500 mg capsule 500 mg PO Q6HR RF: 0 sulfamethoxazole-trimethoprim 800-160 mg tablet 800 mg PO BID RF: 0 Provider Discharge Instructions Diet: Low-fat and Low-cholesterol Skin/Wound/Dressing Care Report to your healthcare provider any signs of infection, such as:: chills, fever, night sweats, increased pain, unusual drainage and unusual redness Visit Report/Discharge Packet Instructions: DI for Cellulitis -- Adult Visit Report Forms: Stroke Signs & Symptoms Discharge Data Attending Provider: Melly Rodriguez Admit Date/Time: 01/08/18 00:14 Quality VTE Deep Vein Thrombosis/Pulmonary Embolism Present on Admission: No
--- NOTE | 2018-01-10 11:00 | CM.DPC ---
[facility]/Medicaid Transportation form faxed per Sharon
[2018-01-10 11:36] VITALS: BP 131/83; PULSE 76; RESP 16; TEMP 36.6; O2SAT 98
--- NOTE | 2018-01-10 13:19 | CM.DPNOTE ---
DCP/continued: Reviewed chart. Received request from patient for [employer] to assist with transportation need. 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 Patient reports that she resides in [place] but needs assistance with getting to her Aunt's residence in [place] Patient plans to have her Mother come to [place] tomorrow to pick her up. Patient denies having any transportation to [place] Patient also with no funds. Therefore, completed Medicaid transport form for hospital discharge. Lonnie faxed to [facility]. Address going to: [address] [place] [address]. [place] [id number]. Patient made aware that request has been submitted to Medicaid now waiting for them to respond on whether or not they will accept. Lonnie received return phone call. Patient scheduled to be picked up at approximately 2:00pm at ED entrance. RN and patient notified. [facility] is transport agency. P: Patient going to Aunt's home in [place] today via medicaid transport. HUONG Arnold
== END 2018-01-10 14:00 | disposition home or self-care (01) | DRG 383 ==
LOC: ED 23:48 → AC 01-08 00:15
PROVIDERS: Hospitalist; Admitting Provider Family Medicine; Emergency Provider Emergency Medicine; Visit Provider Family Medicine
DX: L03.114 Cellulitis of left upper limb (principal); F15.20 Other stimulant dependence, uncomplicated; N17.9 Acute kidney failure, unspecified; F17.210 Nicotine dependence, cigarettes, uncomplicated; E66.9 Obesity, unspecified; Z68.37 Body mass index [BMI] 37.0-37.9, adult; Z91.19 Patient's noncompliance with other medical treatment and regimen
CPT/HCPCS: 36415; 36591; 71046; 80053; 80305; 81003; 83605; 83735; 84145; 85025; 85651; 87040; 87400; 93005; 93010; 93306; 96361; 96365; 96367; 96375; 99283; 99285; J0696